=== PATIENT | male | born 1945 | race Caucasian/White ===

== ENCOUNTER 2018-06-07 04:17 | Emergency (ER) | payer MEDICARE ==
[2018-06-07] MEDS ORDERED: LOPRESSOR 5 MG/5 ML INJECTION IV ONE ×2 (04:47→04:49)
[2018-06-07] MEDS ORDERED: MORPHINE SULFATE 2 MG INJ IV ONE ×2 (05:22→06:06)
[2018-06-07] MEDS ORDERED: Zofran 4 MG/2 ML VIAL IV ONE (05:23)
[2018-06-07] MEDS ORDERED: MORPHINE SULFATE 2 MG INJ ONE ×2 (05:24→06:08)
[2018-06-07] MEDS ORDERED: Zofran 4 MG/2 ML VIAL ONE (05:24)
--- NOTE | 2018-06-07 05:33 | ERPHSYRPT ---
- History of Present Illness Time Seen by Provider: 06/07/18 04:40 Source: patient Exam Limitations: no limitations Patient Subjective Stated Complaint: pt states he has had a headache since last night. states his neck and back of his head are tender to touch. movement and light make pain worse Triage Nursing Assessment: pt alert and oriented, answers questions approp. pt ambulatory with steady gait noted. respirations nonlabored with lungs cta. pupils equal and reactive. bilat upper and lower ext strength wnl. no facial droop noted. Physician History: 72 y/o white male presents with headache located right lateral occipital/ mastoid region and radiates down right posterolateral neck. started 2 nights ago but worsened last night. thinks he may have slept on it wrong.the pain in this area is the primary reason he came to ER. pt has h/o htn. he takes bystolic in the mornings but has not taken this am. pt did have a recent increase in his dosage a month ago. pt denies head trauma. pt denies visual changes. pt does state this in the worst headache hes ever had. pts blood pressure is usually 160-170s systolic and 90-100 diastolic. pt denies cp, denies soa and denies abd pain Timing/Duration: yesterday (evening) Quality: sharpness Severity of Pain-Max: moderate Severity of Pain-Current: mild Recent Head Trauma: no recent headache/trauma, occasional headaches Associated Symptoms: neck pain, No confusion, No dizziness, No light-headedness , No loss of consciousness, No nausea/vomiting, No sensitive to light, No trouble walking, No visual disturbance Previous symptoms: no prior history Allergies/Adverse Reactions: No Known Drug Allergies Allergy (Verified 06/07/18 04:34) Home Medications: Hydrocodone Bit/Acetaminophen [Hydrocodon-Acetaminophn 10-325] 1 each PO Q4- 6HPRN PRN 03/01/15 [History] Nebivolol HCl [Bystolic] 10 mg PO DAILY 03/01/15 [History] Zolpidem Tartrate [Ambien] 10 mg PO HS 03/01/15 [History] ALPRAZolam [Xanax 0.5 mg] 0.5 mg PO DAILY PRN PRN 05/05/16 [History] Hx Tetanus, Diphtheria Vaccination/Date Given: Yes Hx Influenza Vaccination/Date Given: No Hx Pneumococcal Vaccination/Date Given: No Immunizations Up to Date: Yes - Review of Systems Constitutional: No Symptoms, No Fever Eyes: No Symptoms Ears, Nose, & Throat: No Symptoms Respiratory: No Symptoms, No Cough, No Dyspnea, No Stridor, No Wheezing Cardiac: No Symptoms, No Chest Pain Abdominal/Gastrointestinal: No Symptoms, No Abdominal Pain, No Nausea, No Vomiting, No Diarrhea Genitourinary Symptoms: No Symptoms, No Dysuria, No Frequency, No Hematuria Musculoskeletal: Neck Pain, No Back Pain, No Fall, No Injury Skin: No Symptoms Neurological: Headache, No Dizziness, No Focal Weakness, No Gait Changes Psychological: No Symptoms, No Anxiety Endocrine: No Symptoms Hematologic/Lymphatic: No Symptoms Immunological/Allergic: No Symptoms All Other Systems: Reviewed and Negative - Past Medical History Pertinent Past Medical History: Yes Neurological History: No Pertinent History ENT History: No Pertinent History Cardiac History: Hypertension Respiratory History: No Pertinent History Endocrine Medical History: No Pertinent History Musculoskeletal History: No Pertinent History GI Medical History: Gallbladder Disease, Pancreatitis History: No Pertinent History Psycho-Social History: Anxiety Male Reproductive Disorders: No Pertinent History - Past Surgical History Past Surgical History: Yes Neuro Surgical History: No Pertinent History Cardiac: Cardiac Catheterization Respiratory: No Pertinent History Gastrointestinal: Appendectomy, Cholecystectomy Genitourinary: No Pertinent History Musculoskeletal: Orthopedic Surgery Male Surgical History: Vasectomy Other Surgical History: VASECTOMY Right Wrist Surgery Right knee - Social History Smoking Status: Never smoker Exposure to second hand smoke: No Drug Use: none Patient Lives Alone: No - Nursing Vital Signs Nursing Vital Signs: Initial Vital Signs Pulse Rate 63 06/07/18 04:23 Respiratory Rate 18 06/07/18 04:23 Blood Pressure 195/109 06/07/18 04:23 O2 Sat by Pulse Oximetry 99 06/07/18 04:23 Pain Scale Pain Intensity 6 - Physical Exam General Appearance: mild distress, alert, anxiety Eye Exam: PERRL/EOMI, eyes nml inspection Ears, Nose, Throat Exam: normal ENT inspection, TMs normal, moist mucous membranes Neck Exam: normal inspection, supple, full range of motion, other (right posterolateral neck tenderness; hurts to touch.), No limited range of motion, No midline tenderness Respiratory Exam: normal breath sounds, lungs clear, airway intact, No chest tenderness, No respiratory distress, No accessory muscle use, No rhonchi, No wheezing, No stridor Cardiovascular Exam: regular rate/rhythm, normal heart sounds, normal peripheral pulses Gastrointestinal/Abdominal Exam: soft Back Exam: normal inspection, normal range of motion, No CVA tenderness, No vertebral tenderness Extremity Exam: normal inspection, normal range of motion, pelvis stable Mental Status Exam: alert, oriented x 3, cooperative, 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 Exam: normal hearing, normal speech, PERRL, No abnormal eye position, No abnormal gag reflex, No abnormal speech, No facial asymmetry Coordination/Gait Exam: normal finger to nose, normal gait Motor/Sensory Exam: no motor deficit, no sensory deficit, no pronator drift Skin Exam: normal color, warm, dry Lymphatic Exam: No adenopathy SpO2 Interpretation: normal SpO2: 97 Oxygen Delivery: Room Air Ordered Tests: Active Orders 24 hr Category Date Time Status HEAD WITHOUT CONTRAST [CT] Stat Exams 06/07/18 04:47 Taken BMP Stat Lab 06/07/18 05:34 Ordered CBC W DIFF Stat Lab 06/07/18 05:33 Ordered Medication Summary Discontinued Medications Generic Name Dose Route Start Last Admin Trade Name Rolandq PRN Reason Stop Dose Admin Lorazepam 1 mg 06/07/18 05:43 06/07/18 05:47 Ativan 2 Mg/1 Ml Vial IV 06/07/18 05:44 1 mg STAT ONE Administration Lorazepam Confirm 06/07/18 05:45 Ativan 2 Mg/1 Ml Vial Administered 06/07/18 05:46 Dose 2 mg .ROUTE .STK-MED ONE Metoprolol Tartrate 5 mg 06/07/18 04:47 06/07/18 04:50 Lopressor 5 Mg/5 Ml Injection IV 06/07/18 04:48 5 mg STAT ONE Administration Metoprolol Tartrate Confirm 06/07/18 04:49 Lopressor 5 Mg/5 Ml Injection Administered 06/07/18 04:50 Dose 5 mg IV .STK-MED ONE Morphine Sulfate 2 mg 06/07/18 05:22 06/07/18 05:26 Morphine Sulfate 2 Mg Inj IV 06/07/18 05:23 2 mg STAT ONE Administration Morphine Sulfate Confirm 06/07/18 05:24 Morphine Sulfate 2 Mg Inj Administered 06/07/18 05:25 Dose 2 mg .ROUTE .STK-MED ONE Ondansetron HCl 4 mg 06/07/18 05:23 06/07/18 05:26 Zofran 4 Mg/2 Ml Vial IV 06/07/18 05:24 4 mg STAT ONE Administration Ondansetron HCl Confirm 06/07/18 05:24 Zofran 4 Mg/2 Ml Vial Administered 06/07/18 05:25 Dose 4 mg .ROUTE .STK-MED ONE Lab/Rad Data: Laboratory Result Diagrams 06/07/18 05:00 Laboratory Results 06/07/18 Range/Units 05:00 WBC 8.4 (4.0-10.5) K/mm3 RBC 5.04 (4.1-5.6) M/mm3 Hgb 15.7 (12.5-18.0) gm/dl Hct 47.0 (42-50) % MCV 93.3 (78-100) fl MCH 31.2 (26-32) pg MCHC 33.4 (32-36) g/dl RDW 13.6 (11.5-14.0) % Plt Count 163 (150-450) K/mm3 MPV 12.4 H (6-9.5) fl Gran % 56.4 (36.0-66.0) % Eos # (Auto) 0.14 (0-0.5) Absolute Lymphs (auto) 2.61 (1.0-4.6) Absolute Monos (auto) 0.88 (0.0-1.3) Lymphocytes % 30.9 (24.0-44.0) % Monocytes % 10.4 (0.0-12.0) % Eosinophils % 1.7 (0.00-5.0) % Basophils % 0.6 (0.0-0.4) % Absolute Granulocytes 4.76 (1.4-6.9) Basophils # 0.05 (0-0.4) - Progress Progress: improved, re-examined Air Movement: good Progress Note: 06/07/18 06:08 pt states neck pain improving. now "just sore" Blood Culture(s) Obtained: No Antibiotics given: No Counseled pt/family regarding: lab results, diagnosis, need for follow-up, rad results - Departure Time of Disposition: 06:10 Departure Disposition: Home Clinical Impression: Hypertension, Muscle spasms of neck Condition: Stable Critical Care Time: No Referrals: YOVANY LARA MD [Primary Care Provider] - Additional Instructions: take new and old medication as prescribed. follow up with dr. lara today for further management Prescriptions: Diazepam [Valium] 2 mg PO Q8H PRN PRN #10 tablet PRN Reason: Muscle Spasms
[2018-06-07] MEDS ORDERED: Ativan 2 MG/1 ML VIAL IV ONE (05:43)
[2018-06-07] MEDS ORDERED: Ativan 2 MG/1 ML VIAL ONE (05:45)
[2018-06-07 05:47] LABS: BASOPHIL % 0.6 % (0.0-0.4); Basophil (Absolute #) 0.05 (0-0.4); Eosinophil % 1.7 % (0.00-5.0); Eosinophil (Absolute #) 0.14 (0-0.5); Granulocyte Absolute (ANC) 4.76 (1.4-6.9); Granulocytes % 56.4 % (36.0-66.0); Hemoglobin 15.7 gm/dl (12.5-18.0); Lymphocyte (Absolute #) 2.61 (1.0-4.6); Lymphocytes % 30.9 % (24.0-44.0); Mean Cell Volume 93.3 fl (78-100); Mean Corpuscular Hemoglobin 31.2 pg (26-32); Mean Corpuscular Hgb Concent. 33.4 g/dl (32-36); Mean Platelet Volume 12.4 fl (6-9.5); Monocyte (Absolute #) 0.88 (0.0-1.3); Monocytes % 10.4 % (0.0-12.0); Platelet Count 163 K/mm3 (150-450); Red Blood Count 5.04 M/mm3 (4.1-5.6); Red Cell Distribution Width 13.6 % (11.5-14.0); White Blood Count 8.4 K/mm3 (4.0-10.5)
[2018-06-07 06:02] LABS: ANION GAP 12.8 MEQ/L (5-15); BLOOD UREA NITROGEN 21 mg/dL (9-20); CHLORIDE 103 mmol/L (98-107); Calcium 9.3 mg/dL (8.4-10.2); Carbon Dioxide 31 mmol/L (22-30); Creatinine 1 0.88 mg/dL (0.66-1.25); Glucose 112 mg/dL (74-106); Potassium 3.9 mmol/L (3.5-5.1); SODIUM 144 mmol/L (137-145)
[2018-06-07 06:07] VITALS: BP 162/96; PULSE 63
[2018-06-07 06:13] VITALS: O2SAT 97
--- NOTE | 2018-06-07 08:49 | XRAY ---
Indication: Headache and blurry vision. No known injury. Multiple contiguous axial images obtained through the head without contrast. Comparison: June 04, 2010. Again normal appearing brain parenchyma, ventricles, and bony calvarium for patient's age. Visualized paranasal sinuses and mastoid air cells are clear. Impression: Stable normal CT head without contrast exam. Comment: Preliminary interpretation was made by [facility]. No critical discrepancy. CT DI 68.81
== END 2018-06-07 06:40 | disposition home or self-care (01) ==
LOC: ED 04:17
DX: I10 Essential (primary) hypertension (principal); M62.830 Muscle spasm of back; R51 Headache; M54.2 Cervicalgia; Z79.899 Other long term (current) drug therapy
CPT/HCPCS: 36415; 70450; 80048; 85025; 96374; 96375; 96376; 99284; J2060; J2270; J2405

== ENCOUNTER 2021-04-14 05:56 | Day surgery (SDC) | payer MEDICARE ==
[2021-04-14] MEDS ORDERED: Lactated Ringers 1,000 ML IV SCH (06:00)
[2021-04-14] MEDS ORDERED: DIPRIVAN 200 MG/20 ML IV ONE ×2 (07:24→07:52)
--- NOTE | 2021-04-14 08:32 | OP ---
SURGERY DATE/TIME: 04/14/2021 0739 PREOPERATIVE DIAGNOSIS: Screening colonoscopy. POSTOPERATIVE DIAGNOSIS: Normal colon. PROCEDURE: Colonoscopy. SURGEON: Skip Acosta M.D. ANESTHESIA: MAC by Ferderic Bonilla CRNA. ESTIMATED BLOOD LOSS: None. SPECIMENS: None. DESCRIPTION OF PROCEDURE: After informed written consent was obtained, the patient was taken to the endoscopy suite. He was placed in left lateral decubitus position and then anesthesia was titrated to desired level of consciousness. Digital rectal exam showed normal sphincter tone and no internal lesions. The scope was inserted into the rectum and sequentially the entire colonic mucosa was traversed. The level of cecum was reached and verified with direct visualization of ileocecal valve. Careful mucosal inspection upon withdrawal revealed no gross abnormalities. No polyps or other significant mucosal abnormalities were appreciable. Prior to withdrawal retroflexion was performed and showed no internal lesions. Prep was noted to be good. The scope was removed and the patient was transferred to the recovery room in good condition.
[2021-04-14 08:44] VITALS: O2SAT 98
[2021-04-14 08:45] VITALS: BP 132/90; PULSE 74
== END 2021-04-14 08:45 | disposition home or self-care (01) ==
LOC: SDC 05:56
PROVIDERS: ATTEND Family Medicine
DX: Z12.11 Encounter for screening for malignant neoplasm of colon (principal); I10 Essential (primary) hypertension; Z79.899 Other long term (current) drug therapy
CPT/HCPCS: 99100; J2704

== ENCOUNTER 2023-05-08 18:14 | Emergency (ER) | payer MEDICARE ==
[2023-05-08] MEDS ORDERED: Zofran 4 MG/2 ML VIAL IV ONE (18:28)
[2023-05-08] MEDS ORDERED: Sodium Chloride 0.9% 1000 ML 1,000 ML IV STA (18:28)
--- NOTE | 2023-05-08 18:28 | ERPHSYRPT ---
- History of Present Illness Time Seen by Provider: 05/08/23 18:28 Historian: patient Exam Limitations: no limitations Physician History: This is a 77-year-old white male patient that has atrial fibrillation and is on Eliquis and presents to the emergency department with simultaneous onset of hematuria with dysuria, worsening right flank pain and lower abdominal pain that occurred this morning. Patient states he has had right sided back pain present all summer but it worsened this morning. He has had an appendectomy and a cholecystectomy in the past. He has a history of anxiety, hypertension, pancreatitis, degenerative disc disease, and chronic liver disease. He also stated when the abdominal pain was at its peak at home, he was having some chest pain as well but that has subsided. He is not short of breath. Timing/Duration: today Activities at Onset: none Quality: aching Abdominal Pain Onset Location: periumbilical, suprapubic, flank (Right) Pain Radiation: flank (Right) Severity of Pain-Max: moderate Severity of Pain-Current: mild Associated Symptoms: nausea, other (See above) Previous symptoms: no prior history Allergies/Adverse Reactions: No Known Drug Allergies Allergy (Verified 04/14/21 06:00) Home Medications: Zolpidem Tartrate [Ambien] 10 mg PO HS 03/01/15 [History] ALPRAZolam [Xanax 0.5 mg] 0.5 mg PO DAILY PRN PRN 05/05/16 [History] Amlodipine Besylate/Benazepril [Amlodipine-Benazepril 5-20 mg] 1 each PO DAILY 03/30/21 [History] Apixaban [Eliquis] 5 mg PO DAILY 03/30/21 [History] Hydrocodone/Acetaminophen [Hydrocodone-Acetamin 10-325 mg^^^] 1 tab PO Q6HPRN PRN 03/30/21 [History] Metoprolol Succinate 50 mg [Toprol Xl 50 MG] 50 mg PO DAILY 03/30/21 [History] Promethazine HCl 12.5 mg PO DAILY PRN PRN 03/30/21 [History] Acetaminophen/Diphenhydramine [Tylenol Pm Exstr 500-25Mg Cplt] 1 each PO HS PRN PRN 04/14/21 [History] Hx Tetanus, Diphtheria Vaccination/Date Given: Yes Hx Influenza Vaccination/Date Given: No Hx Pneumococcal Vaccination/Date Given: No Travel Risk - International Travel Have you traveled outside of the country in past 3 weeks: No - Coronavirus Screening Are you exhibiting any of the following symptoms?: No Close contact with a COVID-19 positive Pt in past 14-21 Days: No - Review of Systems Constitutional: No Symptoms Eyes: No Symptoms Ears, Nose, & Throat: No Symptoms Respiratory: No Symptoms Cardiac: No Symptoms Abdominal/Gastrointestinal: No Symptoms Genitourinary Symptoms: Dysuria, Hematuria, Flank Pain (Right) Musculoskeletal: No Symptoms Skin: No Symptoms Neurological: No Symptoms Psychological: No Symptoms Endocrine: No Symptoms Hematologic/Lymphatic: No Symptoms Immunological/Allergic: No Symptoms All Other Systems: Reviewed and Negative - Past Medical History Pertinent Past Medical History: Yes Neurological History: No Pertinent History ENT History: No Pertinent History Cardiac History: Arrhythmia, Hypertension Respiratory History: No Pertinent History Endocrine Medical History: Liver Disease Musculoskeletal History: Degenerative Disk Disease, Fractures, Osteoarthritis GI Medical History: Gallbladder Disease, Pancreatitis History: No Pertinent History Psycho-Social History: Anxiety Male Reproductive Disorders: No Pertinent History Other Medical History: HX FX LOWER ARM. HX OF KNEE SURGERY IN 70'S (MENICUS). SX HX: APPENDECTOMY, CHOLESCYSTECTOMY, TENDON REPAIR LEFT LOWER ARM (EXTENSOR) 1999 - Past Surgical History Past Surgical History: Yes Neuro Surgical History: No Pertinent History Cardiac: Cardiac Catheterization Respiratory: No Pertinent History Gastrointestinal: Appendectomy, Cholecystectomy Genitourinary: No Pertinent History Musculoskeletal: Orthopedic Surgery Male Surgical History: Vasectomy Other Surgical History: VASECTOMY Right Wrist Surgery Right knee. left labrum surgery - Social History Smoking Status: Never smoker Exposure to second hand smoke: No Drug Use: none Patient Lives Alone: No - Nursing Vital Signs Nursing Vital Signs: Initial Vital Signs Temperature 97.4 F 05/08/23 18:20 Pulse Rate 106 H 05/08/23 18:20 Respiratory Rate 20 05/08/23 18:20 Blood Pressure 167/120 05/08/23 18:20 O2 Sat by Pulse Oximetry 98 05/08/23 18:20 Pain Scale Pain Intensity 3 - Physical Exam General Appearance: no apparent distress, alert, anxiety Eye Exam: PERRL/EOMI, eyes nml inspection Ears, Nose, Throat Exam: normal ENT inspection, moist mucous membranes Neck Exam: normal inspection, non-tender, supple, full range of motion Respiratory Exam: normal breath sounds, lungs clear, airway intact, No chest tenderness, No respiratory distress Cardiovascular Exam: regular rate/rhythm, normal heart sounds, normal peripheral pulses Gastrointestinal/Abdomen Exam: soft, normal bowel sounds, tenderness (Mild suprapubic to palpation), guarding (Mild suprapubic to palpation), No rebound Rectal Exam: not done Back Exam: normal inspection, normal range of motion, CVA tenderness (Right to percussion), No vertebral tenderness Extremity Exam: normal inspection, normal range of motion, pelvis stable Neurologic Exam: alert, oriented x 3, cooperative, 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 tested, normal mood/affect, nml cerebellar function, nml station & gait, sensation nml Skin Exam: normal color, warm, dry Lymphatic Exam: No adenopathy SpO2 Interpretation: normal O2 Delivery: Room Air - Course Nursing assessment & vital signs reviewed: Yes EKG Interpreted by Me: RATE (88), A-fib, Other (No acute ischemic changes on today's twelve-lead EKG.) Ordered Tests: Active Orders 24 hr Category Date Time Status EKG-ER Only STAT Care 05/08/23 19:08 Active IV Insertion STAT Care 05/08/23 18:28 Active ABDOMEN AND PELVIS W/0 CONTRAS [CT] Stat Exams 05/08/23 18:29 Taken AMYLASE Stat Lab 05/08/23 18:30 Completed CBC W DIFF Stat Lab 05/08/23 18:30 Completed CMP Stat Lab 05/08/23 18:30 Completed CULTURE,URINE Stat Lab 05/08/23 18:31 Received LIPASE Stat Lab 05/08/23 18:30 Completed TROPONIN Q4H Lab 05/08/23 19:15 Ordered TROPONIN Q4H Lab 05/08/23 23:15 Ordered TROPONIN Q4H Lab 05/09/23 03:15 Ordered UA W/RFX UR CULTURE Stat Lab 05/08/23 18:31 Completed Medication Summary Generic Name Dose Route Start Last Admin Trade Name Freq PRN Reason Stop Dose Admin Ceftriaxone Sodium/Dextrose 1 g in 50 mls @ 100 mls/hr 05/08/23 19:37 Rocephin 1 Gm-D5w 50 Ml Bag IV 05/08/23 20:06 STAT STA Tamsulosin HCl 0.4 mg 05/08/23 19:40 Tamsulosin Hcl 0.4 Mg Cap PO 05/08/23 19:41 STAT ONE Discontinued Medications Generic Name Dose Route Start Last Admin Trade Name Janey PRN Reason Stop Dose Admin Sodium Chloride 1,000 mls @ 999 mls/hr 05/08/23 18:28 05/08/23 18:32 Sodium Chloride 0.9% 1000 Ml IV 05/08/23 19:28 999 mls/hr .Q1H1M STA Administration Sodium Chloride Confirm 05/08/23 18:31 Sodium Chloride 0.9% 1000 Ml Administered 05/08/23 18:32 Dose 1,000 mls @ ud .ROUTE .STK-MED ONE Morphine Sulfate 4 mg 05/08/23 19:01 05/08/23 19:17 Morphine Sulfate 4 Mg/Ml Injection IV 05/08/23 19:02 4 mg STAT ONE Administration Morphine Sulfate Confirm 05/08/23 19:15 Morphine Sulfate 4 Mg/Ml Injection Administered 05/08/23 19:16 Dose 4 mg .ROUTE .STK-MED ONE Ondansetron HCl 4 mg 05/08/23 18:28 05/08/23 18:32 Ondansetron Hcl 4 Mg/2 Ml Vial IV 05/08/23 18:29 4 mg STAT ONE Administration Ondansetron HCl Confirm 05/08/23 18:31 Ondansetron Hcl 4 Mg/2 Ml Vial Administered 05/08/23 18:32 Dose 4 mg .ROUTE .STK-MED ONE Lab/Rad Data: Laboratory Result Diagrams 05/08/23 18:30 05/08/23 18:30 Laboratory Results 05/08/23 05/08/23 05/08/23 Range/Units 19:15 18:31 18:30 WBC (4.0-10.5) x10^3/uL RBC (4.1-5.6) x10^6/uL Hgb (12.5-18.0) g/dL Hct (42-50) % MCV (78-100) fL MCH (26-32) pg MCHC (32-36) g/dL RDW (11.5-14.0) % Plt Count (150-450) x10^3/uL MPV (7.5-11.0) fL Gran % (36.0-66.0) % Immature Gran % (Auto) (0.00-0.4) % Nucleat RBC Rel Count (0.00-0.1) % Eos # (Auto) (0-0.5) x10^3/uL Immature Gran # (Auto) (0.00-0.03) x10^3u/L Absolute Lymphs (auto) (1.0-4.6) x10^3/uL Absolute Monos (auto) (0.0-1.3) x10^3/uL Absolute Nucleated RBC (0.00-0.01) x10^3u/L Lymphocytes % (24.0-44.0) % Monocytes % (0.0-12.0) % Eosinophils % (0.00-5.0) % Basophils % (0.0-0.4) % Absolute Granulocytes (1.4-6.9) x10^3/uL Basophils # (0-0.4) x10^3/uL Sodium 138 (137-145) mmol/L Potassium 4.1 (3.5-5.1) mmol/L Chloride 103 (98-107) mmol/L Carbon Dioxide 26 (22-30) mmol/L Anion Gap 13.5 (5-15) MEQ/L BUN 16 (9-20) mg/dL Creatinine 0.89 (0.66-1.25) mg/dL Estimated GFR > 60.0 ML/MIN Glucose 124 H (74-106) mg/dL Calcium 9.9 (8.4-10.2) mg/dL Total Bilirubin 3.30 H (0.2-1.3) mg/dL AST 52 (17-59) U/L ALT 22 (0-50) U/L Alkaline Phosphatase 73 (38-126) U/L Troponin I < 0.012 (0.000-0.034) ng/mL Serum Total Protein 7.5 (6.3-8.2) g/dL Albumin 4.5 (3.5-5.0) g/dL Amylase 54 (30-110) U/L Lipase 44 (23-300) U/L Urine Color Red A (Yellow) Urine Appearance Turbid A (Clear) Urine pH 5.0 (4.6-8.0) Ur Specific [place] 1.025 (1.005-1.030) Urine Protein 100 A (Negative) Urine Glucose (UA) Negative (Negative) mg/dL Urine Ketones Negative (Negative) Urine Blood Small A (Negative) Urine Nitrite Positive A (Negative) Urine Bilirubin Small A (Negative) Urine Urobilinogen 0.2 (0.2) mg/dL Ur Leukocyte Esterase Moderate A (Negative) U Hyaline Cast (Auto) NONE SEEN (0-2) /LPF Urine Microscopic RBC >100 A (0-5) /HPF Urine Microscopic WBC 21-50 A (0-5) /HPF Ur Epithelial Cells Rare (None Seen) /HPF Urine Bacteria Few A (None Seen) /HPF Urine Yeast (Budding) Few A (None Seen) /HPF Urine Culture Reflexed YES (NO) 05/08/23 Range/Units 18:30 WBC 9.9 (4.0-10.5) x10^3/uL RBC 5.22 (4.1-5.6) x10^6/uL Hgb 16.3 (12.5-18.0) g/dL Hct 47.8 (42-50) % MCV 91.6 (78-100) fL MCH 31.2 (26-32) pg MCHC 34.1 (32-36) g/dL RDW 12.6 (11.5-14.0) % Plt Count 129 L (150-450) x10^3/uL MPV 12.0 H (7.5-11.0) fL Gran % 77.3 H (36.0-66.0) % Immature Gran % (Auto) 0.2 (0.00-0.4) % Nucleat RBC Rel Count 0.0 (0.00-0.1) % Eos # (Auto) 0.01 (0-0.5) x10^3/uL Immature Gran # (Auto) 0.02 (0.00-0.03) x10^3u/L Absolute Lymphs (auto) 1.60 (1.0-4.6) x10^3/uL Absolute Monos (auto) 0.57 (0.0-1.3) x10^3/uL Absolute Nucleated RBC 0.00 (0.00-0.01) x10^3u/L Lymphocytes % 16.2 L (24.0-44.0) % Monocytes % 5.8 (0.0-12.0) % Eosinophils % 0.1 (0.00-5.0) % Basophils % 0.4 (0.0-0.4) % Absolute Granulocytes 7.65 H (1.4-6.9) x10^3/uL Basophils # 0.04 (0-0.4) x10^3/uL Sodium (137-145) mmol/L Potassium (3.5-5.1) mmol/L Chloride (98-107) mmol/L Carbon Dioxide (22-30) mmol/L Anion Gap (5-15) MEQ/L BUN (9-20) mg/dL Creatinine (0.66-1.25) mg/dL Estimated GFR ML/MIN Glucose (74-106) mg/dL Calcium (8.4-10.2) mg/dL Total Bilirubin (0.2-1.3) mg/dL AST (17-59) U/L ALT (0-50) U/L Alkaline Phosphatase (38-126) U/L Troponin I (0.000-0.034) ng/mL Serum Total Protein (6.3-8.2) g/dL Albumin (3.5-5.0) g/dL Amylase (30-110) U/L Lipase (23-300) U/L Urine Color (Yellow) Urine Appearance (Clear) Urine pH (4.6-8.0) Ur Specific [place] (1.005-1.030) Urine Protein (Negative) Urine Glucose (UA) (Negative) mg/dL Urine Ketones (Negative) Urine Blood (Negative) Urine Nitrite (Negative) Urine Bilirubin (Negative) Urine Urobilinogen (0.2) mg/dL Ur Leukocyte Esterase (Negative) U Hyaline Cast (Auto) (0-2) /LPF Urine Microscopic RBC (0-5) /HPF Urine Microscopic WBC (0-5) /HPF Ur Epithelial Cells (None Seen) /HPF Urine Bacteria (None Seen) /HPF Urine Yeast (Budding) (None Seen) /HPF Urine Culture Reflexed (NO) - Progress Progress: improved, re-examined Progress Note: 05/08/23 19:40 CT scan of the abdomen pelvis without contrast shows a 4 to 5 mm left UPJ stone with minimal hydronephrosis. There is bilateral renal stones present. This patient's medical history is 1 of moderate complexity. Level complexity and work-up performed based on review of the patient's past medical history, louisa robertswed the patient's medication list, review of the patient's drug allergy list, history of present illness and physical findings on examination. This patient's medical work-up includes intravenous line placement, twelve-lead EKG, troponin level, CT scan of the abdomen pelvis without contrast, urinalysis, amylase and lipase levels. Work-up results show the patient has a left UPJ ureteral stone. We will add Flomax 0.4 mg orally now in the emergency department. We will provide the patient with 1 g of Rocephin intravenously. We will continue his Flomax as an outpatient and remotely send prescription to his pharmacy including remotely sending Cipro 500 mg orally twice a day to treat a urinary tract infection that is present. This prescription will be for 7 days. Patient will follow up with his primary care provider by phone tomorrow to make arranges for follow-up appointment with the primary care provider and for them to make arrangements for follow-up with a urologist. Patient has hydrocodone medication at home which she will be encouraged to take. Counseled pt/family regarding: lab results, diagnosis, need for follow-up, rad results Medical Desision Making - Independent Historian Additional History obtained from: Spouse - Diagnostic Testing Diagnostic test were ordered, analyzed, and reviewed by me: Yes Radiological Interpretation: Reviewed by me, Teleradiologist Report - Risk of complications The pt has a mod risk of morbidity or mortality based on: Need for prescription drug management - Departure Departure Disposition: Home Clinical Impression: Obstruction of left ureteropelvic junction (UPJ) due to stone Condition: Stable Critical Care Time: No Referrals: YOVANY HUI MD [Primary Care Provider] - Follow up/PCP as directed Additional Instructions: Drink plenty of fluids. Take your antibiotics and other medication as prescribed. Call your primary care provider tomorrow morning, 05/09/2023, to make arrangements for follow-up appointment with them and to have them refer you to a urologist for further evaluation and management of this left ureteral stone Prescriptions: Ciprofloxacin [Cipro 500 MG] 500 mg PO BID #14 tablet Tamsulosin HCl 0.4 mg [Flomax 0.4 MG] 0.4 mg PO DAILY #7 cap
[2023-05-08 18:29] VITALS: TEMP 97.4
[2023-05-08] MEDS ORDERED: Zofran 4 MG/2 ML VIAL ONE (18:31)
[2023-05-08] MEDS ORDERED: Sodium Chloride 0.9% 1000 ML 1,000 ML ONE (18:31)
[2023-05-08 18:52] LABS: Absolute Neutrophil Ct (ANC) 7.65 x10^3/uL (1.4-6.9); BASOPHIL % 0.4 % (0.0-0.4); Basophil (Absolute #) 0.04 x10^3/uL (0-0.4); Eosinophil % 0.1 % (0.00-5.0); Eosinophil (Absolute #) 0.01 x10^3/uL (0-0.5); Hematocrit 47.8 % (42-50); Hemoglobin 16.3 g/dL (12.5-18.0); IMMATURE GRAN # 0.02 x10^3u/L (0.00-0.03); IMMATURE GRAN % 0.2 % (0.00-0.4); Lymphocytes % 16.2 % (24.0-44.0); Mean Cell Volume 91.6 fL (78-100); Mean Corpuscular Hemoglobin 31.2 pg (26-32); Mean Corpuscular Hgb Concent. 34.1 g/dL (32-36); Monocyte (Absolute #) 0.57 x10^3/uL (0.0-1.3); Monocytes % 5.8 % (0.0-12.0); Neutrophil % 77.3 % (36.0-66.0); Platelet Count 129 x10^3/uL (150-450); Red Blood Count 5.22 x10^6/uL (4.1-5.6); Red Cell Distribution Width 12.6 % (11.5-14.0); White Blood Count 9.9 x10^3/uL (4.0-10.5)
[2023-05-08 18:59] LABS: Bilirubin Small (Negative); Blood Small (Negative); Epithelial Cells Rare /HPF (None Seen); Glucose, Urine Negative (Negative); Hyaline Casts NONE SEEN /LPF (0-2); Ketones Negative (Negative); Leukocyte Esterase Moderate (Negative); Nitrite Positive (Negative); Protein,Urine Dip 100 (Negative); RBC >100 /HPF (0-5); Specific Gravity 1.025 (1.005-1.030); Urobilinogen 0.2 mg/dL (0.2)
[2023-05-08] MEDS ORDERED: MORPHINE SULFATE 4 MG INJ IV ONE (19:01)
[2023-05-08 19:02] LABS: ALBUMIN 4.5 g/dL (3.5-5.0); ALKALINE PHOSPHATASE 73 U/L (38-126); AMYLASE 54 U/L (30-110); ANION GAP 13.5 MEQ/L (5-15); BLOOD UREA NITROGEN 16 mg/dL (9-20); CHLORIDE 103 mmol/L (98-107); Calcium 9.9 mg/dL (8.4-10.2); Carbon Dioxide 26 mmol/L (22-30); Creatinine 1 0.89 mg/dL (0.66-1.25); EST GLOMERULAR FILTRATION RATE > 60.0 ML/MIN; Glucose 124 mg/dL (74-106); LIPASE 44 U/L (23-300); Potassium 4.1 mmol/L (3.5-5.1); SGOT/AST 52 U/L (17-59); SGPT/ALT 22 U/L (0-50); SODIUM 138 mmol/L (137-145); Total Protein 7.5 g/dL (6.3-8.2)
[2023-05-08] MEDS ORDERED: MORPHINE SULFATE 4 MG INJ ONE (19:15)
[2023-05-08 19:24] LABS: Appearance Turbid (Clear)
[2023-05-08 19:25] LABS: ADD URINE CULTURE? YES (NO); Bacteria Few /HPF (None Seen); Budding Yeast Few /HPF (None Seen); WBC 21-50 /HPF (0-5)
[2023-05-08] MEDS ORDERED: ROCEPHIN 1 Gm-D5w 50 ml Bag** 1 G/50 ML IVPB IV STA (19:37)
[2023-05-08] MEDS ORDERED: Flomax 0.4 MG PO ONE (19:40)
[2023-05-08] MEDS ORDERED: Flomax 0.4 MG ONE (19:49)
[2023-05-08] MEDS ORDERED: ROCEPHIN 1 Gm-D5w 50 ml Bag** 1 G/50 ML IVPB IV ONE (19:50)
[2023-05-08] MEDS ORDERED: LOPRESSOR INJECTION IV ONE ×2 (20:05→20:12)
[2023-05-08 20:32] VITALS: O2SAT 98
[2023-05-08 20:41] VITALS: BP 112/74; PULSE 90; RESP 18
--- NOTE | 2023-05-09 08:37 | XRAY ---
Indication: Abdomen pain and hematuria. Multiple contiguous axial images obtained through the abdomen and pelvis without contrast using renal stone protocol. Comparison: None Lung bases demonstrate a few tiny bibasilar calcified granulomas. Heart not enlarged. Left UPJ demonstrates 4-5 mm calculus with minimal hydronephrosis. A few additional bilateral renal calculi, largest right mid pole measuring 1.1 cm. No free fluid/air. Noncontrasted stomach and bowel loops appear nonobstructed. A few tiny splenic calcified granulomas. Right lobe liver demonstrate 2.2 cm hepatic cyst versus hemangioma. Previous cholecystectomy. Remaining liver, pancreas, spleen, adrenal glands, kidneys, ureters, and bladder are unremarkable for noncontrast exam. Very minimal aortoiliac calcifications without AAA. Osseous structures intact with minimal/mild degenerative changes throughout the thoracolumbar spine and minimal levoscoliosis centered at L3. Mild degenerative changes both hips. Impression: 1. 4-5 mm left UPJ calculus producing minimal obstructive uropathy. Additional bilateral renal calculi. 2. Chronic findings including hepatic cyst versus hemangioma, arteriosclerotic disease, chronic bony findings, and old granulomatous disease.
== END 2023-05-08 20:48 | disposition home or self-care (01) ==
LOC: ED 18:14
DX: N13.2 Hydronephrosis with renal and ureteral calculous obstruction (principal); R31.9 Hematuria, unspecified; R30.0 Dysuria; R10.9 Unspecified abdominal pain; R07.9 Chest pain, unspecified; I10 Essential (primary) hypertension; Z79.01 Long term (current) use of anticoagulants; Z79.891 Long term (current) use of opiate analgesic; Z79.899 Other long term (current) drug therapy
CPT/HCPCS: 36000; 36415; 74176; 80053; 81001; 82150; 83690; 84484; 85025; 87086; 93005; 96365; 96374; 96375; 99284; J0696; J2270; J2405; A9270-GY